=== PATIENT | female | born 1985 | race Caucasian/White ===

== ENCOUNTER 2018-07-10 19:22 | Emergency (ER) | payer OTHER ==
--- NOTE | 2018-07-10 19:59 | Emergency Department Record ---
History of Present Illness - General Chief complaint: GI Bleed Stated complaint: BLOODY STOOL Time Seen by Provider: 07/10/18 19:53 Source: Patient Mode of Arrival: Ambulatory Limitations: No limitations - History of Present Illness Initial comments: 32 yo female presents to ED for evaluation of intermittent BRBPR that began 2 weeks ago associated with abdominal cramping symptoms over the past 2-3 days ago. Patient denies fevers, chills, or recent illness. Patient was initially seen in [facility], heme positive rectal examination per provider. Patient denies health problems at her baseline, denies previous history of colitis. Patient does not take anticoagulation medications. MD complaint: Gross hematochezia Onset/Timin -: Days(s) Severity scale (1-10): 5 Quality: Cramping Consistency: Constant, Intermittent Improves with: None Worsens with: None Treatments Prior to Arrival: None - Related Data Home Medications Medication Instructions Recorded Confirmed Last Taken Buspirone HCl [Buspar] 5 mg PO DAILY 07/10/18 07/10/18 1 Day Ago ~07/09/18 Allergies Allergy/AdvReac Type Severity Reaction Status Date / Time No Known Drug Allergies Allergy Verified 07/10/18 19:31 Travel Screening - Travel/Exposure Within Last 30 Days Have you traveled within the last 30 days?: No - Travel/Exposure Within Last Year Have you traveled outside the [place] in the last year?: No - Additonal Travel Details Have you been exposed to anyone with a communicable illness?: No - Travel Symptoms Symptom Screening: None Review of Systems Constitutional: Denies: Chills, Fever, Malaise, Night sweats Eyes: Denies: Eye discharge, Eye pain ENT: Denies: Congestion, Ear pain, Epistaxis Respiratory: Denies: Cough, Dyspnea Cardiovascular: Denies: Chest pain, Dyspnea on exertion Endocrine: Denies: Fatigue, Heat or cold intolerance Gastrointestinal: Reports: Abdominal pain. Denies: Nausea, Vomiting Genitourinary: Denies: Incontinence, Retention Musculoskeletal: Denies: Arthralgia, Back pain Skin: Denies: Bruising, Change in color Neurological: Denies: Abnormal gait, Confusion, Headache, Seizure Psychiatric: Denies: Anxiety Hematological/Lymphatic: Denies: Anemia, Blood Clots Past Medical History - SOCIAL HISTORY Smoking Status: Never smoker Alcohol Use: Occasional Drug Use: None - RESPIRATORY Hx Respiratory Disorders: No - CARDIOVASCULAR Hx Cardio Disorders: No - NEURO Hx Neuro Disorders: No Hx Headaches: Yes - GI Hx GI Disorders: No - Hx Genitourinary Disorders: No - ENDOCRINE Hx Endocrine Disorders: No - MUSCULOSKELETAL Hx Musculoskeletal Disorders: No - PSYCH Hx Psych Problems: No Hx Anxiety: Yes Hx Depression: Yes (resolved) - HEMATOLOGY/ONCOLOGY Hx Hematology/Oncology Disorders: No Family Medical History Any Significant Family History?: Yes Hx Diabetes: Grandparents Physical Exam - General General Appearance: Alert, Oriented x3, Cooperative, Mild distress Limitations: No limitations - Head Head exam: Atraumatic, Normocephalic, Normal inspection Head exam detail: negative: Abrasion, Contusion, Riley's sign, General tenderness, Hematoma, Laceration - Eye Eye exam: Normal appearance. negative: Conjunctival injection, Periorbital swelling, Periorbital tenderness, Scleral icterus - ENT Ear exam: negative: Auricular hematoma, Auricular trauma Nasal Exam: negative: Active bleeding, Discharge, Dried blood, Foreign body Mouth exam: negative: Drooling, Laceration, Muffled voice, Tongue elevation - Neck Neck exam: Normal inspection. negative: Meningismus, Tenderness - Respiratory Respiratory exam: Normal lung sounds bilaterally. negative: Rales, Respiratory distress, Rhonchi, Stridor - Cardiovascular Cardiovascular Exam: Regular rate, Normal rhythm, Normal heart sounds - GI/Abdominal GI/Abdominal exam: Soft, Tenderness (Mild, diffuse TTP on examination. No rebound or guarding present.). negative: Rebound, Rigid - Rectal Rectal exam: Deferred - exam: Deferred - Extremities Extremities exam: Normal inspection. negative: Pedal edema, Tenderness - Back Back exam: Denies: CVA tenderness (R), CVA tenderness (L) - Neurological Neurological exam: Alert, Normal gait, Oriented X3 - Psychiatric Psychiatric exam: Normal affect, Normal mood - Skin Skin exam: Normal color. negative: Abrasion Type of lesion: negative: abrasion Course Vital Signs 07/10/18 19:26 Temperature 98 F Pulse Rate [ 79 Pulse Ox Probe] Respiratory 20 Rate Blood Pressure 133/79 [Left Arm] Pulse Ox 99 - Reevaluation(s) Reevaluation #1: 07/10/18 19:58 Patient was seen and examined, no external hemorrhoids present on examination. Repeat rectal examination deferred as patient had one performed in . As the patient has mild diffuse abdominal pain symptoms, will image with CT imaging to exclude colitis. Patient is in agreement with the plan of care as discussed. Reevaluation #2: 07/10/18 21:27 laboratory studies were reviewed and are grossly unremarkable for an acute process. CT Abdomen and Pelvis: Normal appendix Cyst right kidney Left ovarian cyst Patient was updated on all results, will refer the patient for GI consultation and further evaluation. Patient appears stable for discharge at this time. Medical Decision Making - Lab Data Result diagrams: 07/10/18 19:40 07/10/18 19:40 Disposition Disposition: Discharge Clinical Impression: Lower GI bleed Disposition: Home, Self-Care Condition: (2) Stable Instructions: Gastrointestinal Bleeding (ED) Additional Instructions: Return to ED if your symptoms worsen or if you have any concerns. Follow-up with your family doctor in 3-5 days as directed. Forms: Patient Portal Access Time of Disposition: 21:29 Quality - Quality Measures Quality Measures: N/A - Blood Pressure Screening Does Patient Have Any of the Following: No Blood Pressure Classification: Pre-Hypertensive BP Reading Systolic Measurement: 133 Diastolic Measurement: 72 Screening for High Blood Pressure: < Pre-Hypertensive BP, F/U Documented > [G8950] Pre-Hypertensive Follow-up Interventions: Referral to alternative/primary care provider.
[2018-07-10 20:12] LABS: ABSOLUTE NEUTROPHIL COUNT 6.17; BASO % 0.5 % (0-6); EOS % 1.4 % (0-6); HEMATOCRIT 39.3 % (35.0-47.0); HEMOGLOBIN 13.5 gm/dl (11.6-16.0); LYMPH % 23.4 % (16-45); MEAN CELL VOLUME 85.8 fl (81-97); MEAN CORPUSCULAR HEMOGLOBIN 29.5 pg (27-33); MEAN CORPUSCULAR HGB CONC 34.4 g/dl (32-36); MEAN PLATELET VOLUME 9.6 fl (7.4-10.4); MONO % 7.7 % (0-9); PLATELET COUNT 413 K/uL (130-400); RED BLOOD COUNT 4.58 M/uL (3.80-5.40); RED CELL DISTRIBUTION WIDTH 13.7 % (11.5-14.5); WHITE BLOOD COUNT W/O DIFF 9.2 K/uL (4.2-12.2)
[2018-07-10 20:18] LABS: BLOOD UREA NITROGEN 10 mg/dL (6-20); CREATININE 0.6 mg/dL (0.5-0.9); EST GLOMERULAR FILTRATION RATE > 60 mL/min
[2018-07-10 20:19] LABS: TOTAL PROTEIN 7.2 g/dL (6.6-8.7)
[2018-07-10 20:21] LABS: GLUCOSE,RANDOM 94 mg/dL (74-109)
[2018-07-10 20:23] LABS: ALT/SGPT 19 U/L (<33)
[2018-07-10 20:24] LABS: ALB/GLOB RATIO 1.7 (1.1-1.8); ALBUMIN 4.5 g/dL (4.0-5.0); ALKALINE PHOSPHATASE 74 U/L (35-104); AST/SGOT 21 U/L (10.0-35.0)
[2018-07-10 20:27] LABS: URINE APPEARANCE CLEAR; URINE BILIRUBIN NEGATIVE (NEGATIVE); URINE BLOOD NEGATIVE (NEGATIVE); URINE COLOR YELLOW; URINE GLUCOSE (UA) NEGATIVE (NEGATIVE); URINE KETONE NEGATIVE (NEGATIVE); URINE LEUKOCYTE ESTERASE NEGATIVE (NEGATIVE); URINE NITRITE NEGATIVE (NEGATIVE); URINE PROTEIN NEGATIVE (NEGATIVE); URINE UROBILINOGEN 0.2 E.U./dL (0.20 - 1.00)
[2018-07-10 20:29] LABS: HCG,QUALITATIVE URINE NEGATIVE (NEGATIVE)
--- NOTE | 2018-07-12 14:37 | CT SCAN REPORT ---
EXAM: EMERGENCY CT OF THE ABDOMEN AND PELVIS WITH CONTRAST HISTORY: ABDOMINAL CRAMPING AND BLEEDING, BLOOD IN STOOL FOR A FEW WEEKS. TECHNIQUE: Axial CT scan of the abdomen and pelvis was obtained following IV contrast administration. No oral contrast was utilized at the referring physician's request. Please see the medical record for IV contrast specifics. Comparison: No prior CT with which to compare. FINDINGS: No calcified gallstones are seen within the gallbladder. No definite hepatic, splenic, adrenal, pancreatic, or left renal mass identified. Tiny peripheral low attenuation focus posteromedially in the mid portion of the right kidney, too small to accurately characterize, but likely a very tiny renal cyst. There is probably an approximately 2.5 cm cyst in the left ovary. This may just be a dominant follicle although is nonspecific. Slight prominence of the region of the endometrium in the uterine fundus as well measuring about 1.4 cm in thickness. If there is clinical concern for the gynecologic viscera, follow-up pelvic ultrasound might be useful. Evaluation of the bowel is extremely limited without oral contrast. No appendicitis identified. Tiny umbilical hernia containing adipose tissue, but no bowel. No free intraperitoneal air or free intraperitoneal fluid evident. IMPRESSION: 1. PROBABLE TINY CYST POSTEROMEDIALLY RIGHT KIDNEY. 2. VERY SMALL UMBILICAL HERNIA CONTAINING ADIPOSE TISSUE, BUT NO BOWEL. 3. APPROXIMATELY 2.5 CM LEFT OVARIAN CYST, NONSPECIFIC ALTHOUGH MAY JUST BE A DOMINANT FOLLICLE. SLIGHT PROMINENCE OF THE ENDOMETRIUM IN THE FUNDUS OF THE UTERUS WELL. IF THERE IS ANY CLINICAL CONCERN FOR THE GYNECOLOGIC VISCERA, FOLLOW-UP PELVIC ULTRASOUND WOULD BE SUGGESTED. 4. NO APPENDICITIS IDENTIFIED. NO FREE AIR OR FREE FLUID EVIDENT. JOB NUMBER: [id number] [facility]
== END 2018-07-10 21:48 | disposition home or self-care (01) ==
LOC: ER 19:22
DX: K92.1 Melena (principal); R10.9 Unspecified abdominal pain
CPT/HCPCS: 99283; 99284; 85025; 80053; 81003; 81025; 74177; Q9967

== ENCOUNTER 2018-07-12 03:06 | Emergency (ER) | payer OTHER ==
[2018-07-12] MEDS ORDERED: PREDNISONE 20 MG TAB PO ONE (03:11)
--- NOTE | 2018-07-12 03:14 | Emergency Department Record ---
History of Present Illness - General Chief complaint: Allergic Reaction Stated complaint: ALLERGIC REACTION Time Seen by Provider: 07/12/18 03:07 Source: Patient Mode of Arrival: Ambulatory Limitations: No limitations - History of Present Illness Initial Comments: 32 yo female presents to ED for evaluation of itching to the upper extremities this morning, patient reports her symptoms may be related to IV contrast CT imaging performed 30 hour prior. Patient denies throat swelling, wheezing, or difficulty in breathing symptoms. Patient denies health problems at her baseline, denies previous reactions. MD Complaint: Other Onset/Timin -: Days(s) Exposure: Other (IV contrast?) Symptoms: Itching Severity: Moderate Treatment Prior to Arrival: None Previous Allergy History: None - Related Data Previous Rx's Medication Instructions Recorded Prednisone [Prednisone 20Mg] 20 mg PO BID #5 tab 07/12/18 Allergies Allergy/AdvReac Type Severity Reaction Status Date / Time contrast dye Allergy ITCHING Uncoded 07/12/18 03:15 Review of Systems Constitutional: Denies: Chills, Fever, Malaise, Night sweats Eyes: Denies: Eye discharge, Eye pain ENT: Denies: Congestion, Ear pain, Epistaxis Respiratory: Denies: Cough, Dyspnea Cardiovascular: Denies: Chest pain, Dyspnea on exertion Endocrine: Denies: Fatigue, Heat or cold intolerance Gastrointestinal: Denies: Abdominal pain, Nausea, Vomiting Genitourinary: Denies: Incontinence, Retention Musculoskeletal: Denies: Arthralgia, Back pain Skin: Reports: Rash. Denies: Bruising, Change in color Neurological: Denies: Abnormal gait, Confusion, Headache, Seizure Psychiatric: Denies: Anxiety Hematological/Lymphatic: Denies: Anemia, Blood Clots Past Medical History - SOCIAL HISTORY Smoking Status: Never smoker Drug Use: None - RESPIRATORY Hx Respiratory Disorders: No - CARDIOVASCULAR Hx Cardio Disorders: No - NEURO Hx Neuro Disorders: No Hx Headaches: Yes - GI Hx GI Disorders: No - Hx Genitourinary Disorders: No - ENDOCRINE Hx Endocrine Disorders: No - MUSCULOSKELETAL Hx Musculoskeletal Disorders: No - PSYCH Hx Psych Problems: No Hx Anxiety: Yes Hx Depression: Yes (resolved) - HEMATOLOGY/ONCOLOGY Hx Hematology/Oncology Disorders: No Family Medical History Hx Diabetes: Grandparents Physical Exam - General General Appearance: Alert, Oriented x3, Cooperative, Mild distress Limitations: No limitations - Head Head exam: Atraumatic, Normocephalic, Normal inspection Head exam detail: negative: Abrasion, Contusion, Riley's sign, General tenderness, Hematoma, Laceration - Eye Eye exam: Normal appearance. negative: Conjunctival injection, Periorbital swelling, Periorbital tenderness, Scleral icterus - ENT Ear exam: negative: Auricular hematoma, Auricular trauma Nasal Exam: negative: Active bleeding, Discharge, Dried blood, Foreign body Mouth exam: negative: Drooling, Laceration, Muffled voice, Tongue elevation Throat exam: Other (Normal uvula). negative: Tonsillar erythema, Tonsillomegaly, Tonsillar exudate, R peritonsillar mass, L peritonsillar mass - Neck Neck exam: Normal inspection. negative: Meningismus, Tenderness - Respiratory Respiratory exam: Normal lung sounds bilaterally. negative: Rales, Respiratory distress, Rhonchi, Stridor - Cardiovascular Cardiovascular Exam: Regular rate, Normal rhythm, Normal heart sounds - GI/Abdominal GI/Abdominal exam: Soft. negative: Rebound, Rigid, Tenderness - Rectal Rectal exam: Deferred - exam: Deferred - Extremities Extremities exam: Other (Mild erythema to the upper extremities, no hives or urticaria present). negative: Calf tenderness, Pedal edema, Tenderness - Back Back exam: Denies: CVA tenderness (R), CVA tenderness (L) - Neurological Neurological exam: Alert, Normal gait, Oriented X3 - Psychiatric Psychiatric exam: Normal affect, Normal mood - Skin Skin exam: Erythema, Rash Distribution of rash: RUE, LUE Course - Reevaluation(s) Reevaluation #1: 07/12/18 03:18 Patient was seen and examined, findings appear c/w possible mild reaction to IV contrast dye without clinical concern for anaphylaxis. No uvular edema, no wheezing on examination. Will treat with Prednisone 20 mg BID for 3 days, Benadryl as needed. Disposition Disposition: Discharge Clinical Impression: Adverse drug reaction Qualifiers: Encounter type: initial encounter Qualified Code(s): T50.905A - Adverse effect of unspecified drugs, medicaments and biological substances, initial encounter Disposition: Home, Self-Care Condition: (2) Stable Instructions: Urticaria (ED) Additional Instructions: Return to ED if your symptoms worsen or if you have any concerns. Prednisone and Benadryl as directed. Follow-up with your family doctor in 3-5 days as directed. Prescriptions: Prednisone [Prednisone 20Mg] 20 mg PO BID #5 tab Forms: Patient Portal Access Time of Disposition: 03:13 Quality - Quality Measures Quality Measures: N/A - Blood Pressure Screening Does Patient Have Any of the Following: No Blood Pressure Classification: Pre-Hypertensive BP Reading Systolic Measurement: 127 Diastolic Measurement: 81 Screening for High Blood Pressure: < Pre-Hypertensive BP, F/U Documented > [G8950] Pre-Hypertensive Follow-up Interventions: Referral to alternative/primary care provider.
== END 2018-07-12 03:22 | disposition home or self-care (01) ==
LOC: ER 03:06
DX: L29.9 Pruritus, unspecified (principal); T50.8X5A Adverse effect of diagnostic agents, initial encounter
CPT/HCPCS: 99282; J7512